=== PATIENT | male | born 1945 | race Caucasian/White ===

== ENCOUNTER 2023-02-02 14:37 | Outpatient (CLI) | payer MEDICARE ==
[~2023-02-02 14:37] MED LIST: Iopamidol 370 76% 100 ML VIAL ONE
== END 2023-02-02 14:38 | disposition home or self-care (01) ==
LOC: BICCT 14:37
PROVIDERS: ATTEND Internal Medicine Interventional Cardiology
DX: R91.8 Other nonspecific abnormal finding of lung field (principal); R59.0 Localized enlarged lymph nodes
CPT/HCPCS: 71260; 82565; Q9967